=== PATIENT | male | born 1995 | race Caucasian/White ===

== ENCOUNTER 2017-10-08 14:47 | Emergency (ER) | payer BC ==
[~2017-10-08] VITALS: Ht 160 cm; Wt 77.1 kg
[~2017-10-08 14:47] MED LIST: CIPRO500 MG PO; NAPROSYN500 MG PO; NKHM
[2017-10-08 14:50] VITALS: BP 131/77
[2017-10-08] MEDS ORDERED: ANUSOL-HC25 MG R (15:20)
[2017-10-08 15:52] LABS: BILIRUBIN NEGATIVE (NEGATIVE); BLOOD NEGATIVE (NEGATIVE); CLARITY CLEAR (CLEAR); COLOR YELLOW (YELLOW); GLUCOSE NEGATIVE (NEGATIVE); KETONE TRACE (NEGATIVE); LEUKO ESTERASE NEGATIVE (NEGATIVE); NITRITE NEGATIVE (NEGATIVE); UROBILINOGEN 0.2 E.U./dl (0.2-1.0)
[2017-10-08 16:00] LABS: WBC 0-2 wbc/hpf (0-5)
== END 2017-10-08 16:28 | disposition home or self-care (01) ==
LOC: ED 14:47
PROVIDERS: Nurse Practitioner Family
DX: K64.8 Other hemorrhoids (principal)